=== PATIENT | female | born 1955 | race Caucasian/White ===

== ENCOUNTER 2019-06-27 12:25 | Outpatient (CLI) | payer OTHER ==
--- NOTE | 2019-06-27 13:57 | MRI ---
MRI lumbar spine noncontrast HISTORY: Low back pain with bilateral leg radiculopathy. FINDINGS: Radiographs are not available for direct correlation, therefore the lowest lumbar type vert ebra will be designated as L5, with the remainder numbering accordingly. Vertebral body heights are maintained. Bone marrow signal within normal limits. There is desiccation of the lowest 3 interverteb ral discs. T12-L1, L1-2, L2-3: Mild osteophytosis. Central canal and neural foramina are patent. L3-4: Central canal and right neural foramen are patent. Osteophytosis and minimal disc bulge result in moderate stenosis of the left neural foramen. L4-5: Interval degenerative retrolisthesis. Mild disc space narrowing. Mild posterior disc bulge with small annular fissure posteriorly. Posterior disc bulge and circumferential degenerative changes result in mild stenosis of the central canal and moderate stenosis of each neural foramen. L5-S1: Minimal degenerative retrolisthesis. Mild Posterior central disc protrusion contacts but does not significantly compress the ventral aspect of the thecal sac and S1 nerve roots. Osteophytosis and the disc bulge result in moderate stenosis of each neural foramen. IMPRESSION: Degenerative changes lower lumbar spine as detailed above, including moderate bilateral f oraminal stenoses. Annular fissure within the posterior aspect of the L4-5 disc.
== END 2019-06-27 12:26 | disposition home or self-care (01) ==
LOC: SCSMRI 12:25
PROVIDERS: ATTEND Psychiatry & Neurology Neurology
DX: M79.606 Pain in leg, unspecified (principal); M47.816 Spondylosis without myelopathy or radiculopathy, lumbar region; M48.061 Spinal stenosis, lumbar region without neurogenic claudication; M48.07 Spinal stenosis, lumbosacral region; M51.86 Other intervertebral disc disorders, lumbar region
CPT/HCPCS: 72148

== ENCOUNTER 2019-07-11 15:28 | Outpatient (CLI) | payer OTHER ==
--- NOTE | 2019-07-11 16:54 | RAD ---
XR Knee Lt 3 View HISTORY: Left knee pain FINDINGS: No fracture, dislocation or bony destruction is seen. No significant osteophytosis is identified.
--- NOTE | 2019-07-11 16:54 | RAD ---
XR Knee Rt 3 View History: Pain Comparison: None. Findings: Mild lateral compartment joint space narrowing with osteophyte formation. Moderate degenera tive disease proximal tibiofibular joint. No acute displaced fracture or malalignment. Impression: Moderate lateral compartment degenerative change.
== END 2019-07-11 15:29 | disposition home or self-care (01) ==
LOC: RAD 15:28
PROVIDERS: ATTEND Family Medicine
DX: M25.561 Pain in right knee (principal); M25.562 Pain in left knee; M17.11 Unilateral primary osteoarthritis, right knee